=== PATIENT | female | born 1960 | race African-American/Black ===

== ENCOUNTER 2017-10-26 14:22 | Observation (INO) ==
[2017-10-26] MEDS ORDERED: ASPIRIN 325 MG TABLET PO STA (15:52)
[2017-10-26] MEDS ORDERED: METOPROLOL TARTRATE 5 MG/5 ML VIAL IV STA (15:52)
[2017-10-26] MEDS ORDERED: ALUM/MAG/SIMETH/LIDO VISC 1:1 30 ML BOTTLE PO STA (15:52)
[2017-10-26] MEDS ORDERED: METOPROLOL TARTRATE 5 MG/5 ML VIAL IV ONE (16:13)
[2017-10-26] MEDS ORDERED: ASPIRIN 325 MG TABLET ONE (16:13)
[2017-10-26 16:17] LABS: Basophils % 0.3 % (0.0-0.8); Eosinophils # 0.2 10*3/uL (0.0-0.87); Eosinophils % 2.9 % (0.00-10.9); Hematocrit 36.9 VOL% (35.7-47.0); Hemoglobin 11.8 GM/DL (12.0-16.0); Immature Granulocytes % 0.5 %; Immature Granulocytes Absolute 0.03 #; Lymphocytes # 2.6 10*3/uL (1.4-4.0); Lymphocytes % 41.9 % (21.3-54.2); Mean Corpuscular Hemoglobin 25 PG (27-34); Mean Corpuscular Volume 79.2 FL (87-102); Mean Platelet Volume 11.3 FL (9.6-12.0); Monocytes # 0.6 10*3/uL (0.11-0.8); Monocytes % 10.1 % (1.7-12.7); Neutrophils # 2.7 10*3/uL (1.4-7.4); Neutrophils % 44.3 % (38.7-73.9); Platelet Count 323 T/CUMM (130-400); Red Blood Count 4.66 MC/CUMM (3.8-5.5); Red Cell Distribution Width 13.7 % (9.3-17.3); White Blood Count 6.1 T/CUMM (4-12)
[2017-10-26 16:26] LABS: INR 0.9
[2017-10-26 16:52] LABS: Albumin 3.7 G/DL (3.4-5.0); Bilirubin,Total 0.4 MG/DL (0.2-1.0); Calcium 8.8 MG/DL (8.5-10.1); Potassium 3.3 MMOL/L (3.5-5.1); Total Protein 7.5 G/DL (6.4-8.3)
[2017-10-26] MEDS ORDERED: ACETAMINOPHEN 325 MG TABLET PO PRN (18:37)
[2017-10-26] MEDS ORDERED: GLUCAGON 1 MG VIAL IM PRN (18:37)
[2017-10-26] MEDS ORDERED: guaiFENesin/DM ER 600-30 MG TABLET PO PRN (18:37)
[2017-10-26] MEDS ORDERED: ONDANSETRON 4 MG/2 ML VIAL IV PRN (18:37)
[2017-10-26] MEDS ORDERED: diphenhydrAMINE CAP 25 MG CAPSULE PO PRN (18:37)
[2017-10-26] MEDS ORDERED: DEXTROSE 50% 25 GM/50 ML VIAL IV PRN (18:37)
[2017-10-26] MEDS ORDERED: MORPHINE 2 MG/1 ML SYRINGE IV PRN (18:37)
[2017-10-26] MEDS ORDERED: hydrALAZINE 20 MG/1 ML VIAL IV STA (18:46)
[2017-10-26] MEDS ORDERED: hydrALAZINE 20 MG/1 ML VIAL ONE (18:47)
[2017-10-26] MEDS ORDERED: CYCLOBENZAPRINE 10 MG TABLET PO PRN (18:51)
[2017-10-26] MEDS ORDERED: CYCLOBENZAPRINE 10 MG TABLET ONE (19:24)
[2017-10-26] MEDS ORDERED: ENOXAPARIN 40 MG/0.4 ML SYRINGE ONE (19:27)
[2017-10-26] MEDS: ENOXAPARIN 40 MG/0.4 ML SYRINGE SUBCUT SCH (19:30)
[2017-10-26] MEDS ORDERED: CETIRIZINE 10 MG TABLET PO PRN (20:06)
[2017-10-26] MEDS: INSULIN LISPRO 100 UNIT/ML SUBCUT SCH (20:07)
[2017-10-26] MEDS: MORPHINE 4 MG/1 ML VIAL IV PRN (20:16)
[2017-10-26] MEDS: INSULIN GLARGINE 100 UNIT/ML SUBCUT SCH (20:53)
[2017-10-27 06:05] LABS: Calcium 8.4 MG/DL (8.5-10.1); Osmolality,Calculated 282.4 MOS/KG (273-304); Potassium 3.1 MMOL/L (3.5-5.1); Risk Ratio 3.81
[2017-10-27] MEDS: INSULIN LISPRO 100 UNIT/ML SUBCUT SCH ×2 (07:36→16:58)
[2017-10-27] MEDS: PANTOPRAZOLE 40 MG TABLET PO SCH (08:16)
[2017-10-27] MEDS: amLODIPine 10 MG TABLET PO SCH (08:16)
[2017-10-27] MEDS: MULTIVITAMIN (CENTRUM) TABLET PO SCH (08:17)
[2017-10-27] MEDS: ASPIRIN EC 81 MG TABLET PO SCH (08:17)
[2017-10-27] MEDS ORDERED: amLODIPine 5 MG TABLET PO SCH (09:00)
[2017-10-27] MEDS: MAGNESIUM OXIDE 400 MG TABLET PO SCH (10:12)
[2017-10-27] MEDS: LISINOPRIL 10 MG TABLET PO SCH (10:12)
[2017-10-27] MEDS: POTASSIUM CHLORIDE 20 MEQ TABLET PO SCH (10:12)
[2017-10-27] MEDS: GABAPENTIN 100 MG CAPSULE PO SCH ×2 (15:26→21:28)
[2017-10-27] MEDS: MORPHINE 4 MG/1 ML VIAL IV PRN (21:27)
[2017-10-27] MEDS: INSULIN GLARGINE 100 UNIT/ML SUBCUT SCH (21:28)
[2017-10-27] MEDS: ENOXAPARIN 40 MG/0.4 ML SYRINGE SUBCUT SCH (21:28)
[2017-10-28] MEDS: INSULIN LISPRO 100 UNIT/ML SUBCUT SCH ×2 (07:55→16:35)
[2017-10-28] MEDS: amLODIPine 10 MG TABLET PO SCH (09:17)
[2017-10-28] MEDS: MULTIVITAMIN (CENTRUM) TABLET PO SCH (09:17)
[2017-10-28] MEDS: MAGNESIUM OXIDE 400 MG TABLET PO SCH (09:17)
[2017-10-28] MEDS: ASPIRIN EC 81 MG TABLET PO SCH (09:18)
[2017-10-28] MEDS: LISINOPRIL 10 MG TABLET PO SCH (09:18)
[2017-10-28] MEDS: PANTOPRAZOLE 40 MG TABLET PO SCH (09:18)
[2017-10-28] MEDS: POTASSIUM CHLORIDE 20 MEQ TABLET PO SCH (09:18)
[2017-10-28] MEDS: GABAPENTIN 100 MG CAPSULE PO SCH ×3 (09:18→20:19)
[2017-10-28 11:42] LABS: Calcium 8.1 MG/DL (8.5-10.1); Osmolality,Calculated 281.5 MOS/KG (273-304); Potassium 3.6 MMOL/L (3.5-5.1)
[2017-10-28] MEDS: LISINOPRIL 20 MG TABLET PO SCH (14:23)
[2017-10-28] MEDS: ENOXAPARIN 40 MG/0.4 ML SYRINGE SUBCUT SCH (20:19)
[2017-10-28] MEDS: INSULIN GLARGINE 100 UNIT/ML SUBCUT SCH (20:19)
[2017-10-28 23:03] LABS: Apearance,Urine CLEAR (Clear); Bacteria,Urine Occasional /HPF (Few); Bilirubin,Urine Negative (Negative); Blood, Urine Negative (Negative); Glucose,Urine (UA) 50 mg/dL (Negative); Ketones,Urine Negative (Negative); Nitrite,Urine Negative (Negative); Protein,Urine Negative; RBC,Urine <1 /HPF (0-4); Squamous Epithelial Cell,Urine Occasional /HPF (0-10); Urine Color Yellow (Yellow); Urine Specific Gravity 1.015 (1.001-1.035); Urine Urobilinogen < 2.0 EU/DL (0.2-1.0); WBC,Urine 1 /HPF (0-6)
[2017-10-29 06:14] LABS: Basophils % 0.9 % (0.0-0.8); Eosinophils # 0.3 10*3/uL (0.0-0.87); Eosinophils % 6.7 % (0.00-10.9); Hematocrit 34.6 VOL% (35.7-47.0); Immature Granulocytes % 0.2 %; Immature Granulocytes Absolute 0.01 #; Lymphocytes # 2.2 10*3/uL (1.4-4.0); Lymphocytes % 49.8 % (21.3-54.2); Mean Corpuscular HGB Conc 31.8 GM/DL (32-36); Mean Corpuscular Hemoglobin 26 PG (27-34); Mean Corpuscular Volume 80.1 FL (87-102); Mean Platelet Volume 11.1 FL (9.6-12.0); Monocytes # 0.6 10*3/uL (0.11-0.8); Monocytes % 12.7 % (1.7-12.7); Neutrophils # 1.3 10*3/uL (1.4-7.4); Neutrophils % 29.7 % (38.7-73.9); Platelet Count 301 T/CUMM (130-400); Red Blood Count 4.32 MC/CUMM (3.8-5.5); Red Cell Distribution Width 13.6 % (9.3-17.3); White Blood Count 4.5 T/CUMM (4-12)
[2017-10-29 06:43] LABS: Band Neutrophils 8 % (0-10); Eosinophils 6 % (0-10); Lymphocytes 51 % (20-55); Platelet Estimate Normal; Segmented Neutrophils 29 % (50-85); Total Cells Counted 100
[2017-10-29 06:59] LABS: % Iron Saturation 21.7 % (18-50); Calcium 8.8 MG/DL (8.5-10.1); Ferritin 135.6 ng/ml (8-252); Osmolality,Calculated 282.4 MOS/KG (273-304); Potassium 3.6 MMOL/L (3.5-5.1)
[2017-10-29 07:05] LABS: Vitamin B12 533 PG/ML (211-911)
[2017-10-29 07:27] LABS: Sedimentation Rate-Westergren 35 MM/HR (0-30)
[2017-10-29] MEDS: INSULIN LISPRO 100 UNIT/ML SUBCUT SCH (09:05)
[2017-10-29] MEDS: ASPIRIN EC 81 MG TABLET PO SCH (09:07)
[2017-10-29] MEDS: PANTOPRAZOLE 40 MG TABLET PO SCH (09:07)
[2017-10-29] MEDS: amLODIPine 10 MG TABLET PO SCH (09:07)
[2017-10-29] MEDS: MULTIVITAMIN (CENTRUM) TABLET PO SCH (09:07)
[2017-10-29] MEDS: MAGNESIUM OXIDE 400 MG TABLET PO SCH (09:07)
[2017-10-29] MEDS: POTASSIUM CHLORIDE 20 MEQ TABLET PO SCH (09:07)
[2017-10-29] MEDS: GABAPENTIN 100 MG CAPSULE PO SCH (09:07)
[2017-10-29] MEDS: LISINOPRIL 20 MG TABLET PO SCH (09:07)
[2017-10-29] MEDS ORDERED: LISINOPRIL 20 MG TABLET PO SCH (09:41)
[2017-10-29 09:57] LABS: Hemoglobin A1 (Alkaline) 97.8 % (96.5-98.5); Hemoglobin A2 (Alkaline) 2.2 % (1.5-3.5)
[2017-10-29 11:58] VITALS: BP 168/92
[2017-10-30] MEDS ORDERED: CHOLECALCIFEROL 1,000 UNIT TABLET PO SCH (09:00)
== END 2017-10-29 14:20 | disposition home or self-care (01) ==
LOC: N.EDINP 14:22 → N.ED 14:22 → N.EDINP 19:53 → N.4E 20:11
PROVIDERS: ADMIT Hospitalist; ATTEND Hospitalist